=== PATIENT | female | born 1980 | race Caucasian/White ===

== ENCOUNTER → 2018-08-22 13:00 | Outpatient (CLI) | payer OTHER, SELFPAY | PROVIDERS: PCP Family Medicine | DX: Z23 Encounter for immunization (principal) | CPT/HCPCS: 90471; 90686 ==

== ENCOUNTER → 2019-01-18 12:27 | Outpatient (CLI) | payer OTHER, SELFPAY ==
[2019-01-18 14:18] LABS: Free T3, Triiodothyronine Free 3.43 pg/mL (2.77-5.27)
[2019-01-18 14:32] LABS: TSH w/ Reflex to FT4 2.85 uIU/mL (0.47-4.68)
== END ==
PROVIDERS: PCP Family Medicine; Visit Provider Family Medicine
DX: E03.9 Hypothyroidism, unspecified (principal)
CPT/HCPCS: 36415; 84443; 84481

== ENCOUNTER → 2019-08-30 15:15 | Outpatient (CLI) | payer OTHER, SELFPAY | PROVIDERS: PCP Family Medicine | DX: Z23 Encounter for immunization (principal) | CPT/HCPCS: 90471; 90686 ==